=== PATIENT | female | born 1990 | race Caucasian/White ===

== ENCOUNTER 2024-01-16 15:05 | Outpatient (RCR) | payer BC, SELFPAY | END 2024-03-28 09:49 | disposition home or self-care (01) | PROVIDERS: PCP Physician Assistant Medical; Visit Provider Family Medicine | DX: M53.3 Sacrococcygeal disorders, not elsewhere classified (principal); M54.16 Radiculopathy, lumbar region; Z51.89 Encounter for other specified aftercare | CPT/HCPCS: 97110; 97161 ==

== ENCOUNTER 2024-01-25 11:14 | Outpatient (CLI) | payer BC, SELFPAY | END 2024-01-25 11:15 | disposition home or self-care (01) | LOC: LKVREF 11:16 | PROVIDERS: PCP Physician Assistant Medical; Visit Provider Nurse Practitioner Family | DX: N30.01 Acute cystitis with hematuria (principal); Z13.228 Encounter for screening for other metabolic disorders | CPT/HCPCS: 80053; 87086 ==

== ENCOUNTER 2024-04-19 16:08 | Outpatient (CLI) | payer BC, SELFPAY | END 2024-04-19 16:09 | disposition home or self-care (01) | PROVIDERS: PCP Physician Assistant Medical; Visit Provider Family Medicine | DX: R07.9 Chest pain, unspecified (principal) | CPT/HCPCS: 84443; 85379 ==

== ENCOUNTER 2024-04-24 07:56 | Outpatient (CLI) | payer BC, SELFPAY | END 2024-04-24 07:57 | disposition home or self-care (01) | LOC: RAD 07:57 | PROVIDERS: PCP Physician Assistant Medical; Visit Provider Family Medicine | DX: R07.9 Chest pain, unspecified (principal) | CPT/HCPCS: 93306 ==

== ENCOUNTER 2024-08-21 13:52 | Outpatient (CLI) | payer BC, SELFPAY ==
--- NOTE | 2024-08-21 14:00 | CRLHL7_ITS ---
For Patients: As a result of the Cures Act, medical imaging exams and procedure reports are released immediately into your electronic medical record. You may view this report before your referring provider. If you have questions, please contact your health care provider. LMP: 05/27/2024. MARTY by LMP: 03/03/2025. GA: 12w, 2d. INDICATION: Dating and viability. TECHNIQUE: Transabdominal obstetric imaging was performed. CRL: 2.2 cm, 8w, 6d. MARTY 03/27/2025. FHR: 178 bpm. GESTATIONAL SAC: 2.9 cm. YOLK SAC: 4.0 mm, appears within normal limits. RIGHT OVARY: Not visualized. LEFT OVARY: 3.3 x 1.8 x 1.9 cm, CL. IMPRESSION: Single living intrauterine with sonographic gestational age 8 weeks, 6 days and sonographic due date 03/27/2025. Leif Lombardo M.D. Diagnostic Radiologist [email or web address] ERIC/sunny / bM/Dictated by: Leif Lombardo MD @ 08/22/2024 8:16:00 PM (Electronically Signed)
== END 2024-08-21 13:53 | disposition home or self-care (01) ==
LOC: US 13:54
PROVIDERS: PCP Family Medicine; Visit Provider Registered Nurse
DX: Z34.91 Encounter for supervision of normal pregnancy, unspecified, first trimester (principal)
CPT/HCPCS: 76801; 82565; 82570; 83021; 84156; 84450; 84460; 84520; 86592; 86703; 86704; 86706; 86762; 86787; 86803; 86850; 86900; 86901; 87086; 87340; 87491; 87591

== ENCOUNTER 2024-08-26 08:13 | Outpatient (CLI) | payer BC, SELFPAY | END 2024-08-26 08:14 | disposition home or self-care (01) | LOC: NFLDREF 08-28 03:12 | PROVIDERS: PCP Family Medicine; Referring Provider Family Medicine; Visit Provider Registered Nurse | DX: R03.0 Elevated blood-pressure reading, without diagnosis of hypertension (principal) | CPT/HCPCS: 82570; 84156 ==

== ENCOUNTER 2024-09-04 15:30 | Outpatient (CLI) | payer BC, SELFPAY | END 2024-09-04 15:31 | disposition home or self-care (01) | LOC: NFLDREF 15:32 | PROVIDERS: PCP Family Medicine; Visit Provider Obstetrics & Gynecology | DX: R30.0 Dysuria (principal) | CPT/HCPCS: 87086 ==

== ENCOUNTER 2024-10-30 08:51 | Outpatient (CLI) | payer BC, SELFPAY ==
--- OUTSIDE RECORDS SUMMARY | 2024-10-31 00:34 | XMS_ITS | Clinical Summary ---
Author Organization [facility] Address [address] [place] [id number] Care Team Providers Care Agent Broker Name Role Phone Bertrand Escamilla PA-C Primary Care Provider [phone] Allergies Active Allergy Reactions Criticality Noted Date Comments No Known Allergies 10/02/2003 Medications desogestrel-eth inyl estradiol (APRI) 0.15-30 MG-MCG per tabletIndicatio ns:Contraceptio n Take 1 tablet by mouth daily. 3 Package 3 06/22/2011 Active gabapentin (NEURONTIN) 100 MG capsule Take 1 capsule (100 mg) by mouth 3 times daily for 14 days. 42 capsule 01/08/2024 Active Active Problems Problem Noted Date Diagnosed Date Tobacco abuse 05/23/2011 Papanicolaou smear of cervix with low grade squamous intraepithelial lesion (LGSIL) 05/23/2011 Overview (01/09/2013): 05/23/11 LSIL <21 years of age: repeat Dx pap in 1 year per pap protocol for age, due 05/201205/25/12 Reminder letter sent to patient 09/14/12 Phone conversation with patient regarding follow up needed. 11/21/12 Abnormal reminder sent. 01/09/13 Consider to be lost to pap follow up. CARDIOVASCULAR SCREENING; LDL GOAL LESS THAN 160 01/18/2011 GERD (gastroesophageal reflux disease) 8 Depressive disorder, not elsewhere classified Eating disorder 06/15/2003 Overview (02/05/2015): Problem list name updated by automated process. Provider to review Immunizations Immunization Administration Dates Next Due HPV 02/26/2010,09/11/2008 HepB 03/03/2005,11/20/2003,12/26/2002 Influenza (IIV3) PF 02/26/2010 MMR (MMRII) 12/26/2002 TD,PF 7+ (Tenivac) 12/26/2002 TDAP Vaccine (Adacel) 05/23/2011 Family History Medical History Relation Comments Cancer Maternal Grandfather protate CA Heart Disease Paternal Grandfather [place] Breast Cancer No family hx of Cancer - colorectal No family hx of Relation Status Comments Maternal Grandfather Paternal Grandfather Social History Tobacco Use Types Packs/Day Years Used Date Smoking Tobacco: Every Day Cigarettes Alcohol Use Standard Drinks/Week Comments Yes 0 (1 standard drink = 0.6 oz pur e alcohol) Comments No Sex and Gender Information Value Date Recorded Sex Assigned at Not on file Legal Sex Female 3:24 AM CIGAR BANDER Gender Identity Not on file Sexual Orientation Not on file Last Filed Vital Signs Vital Sign Reading Time Taken Comments Blood Pressure 134/100 01/08/2024 4:09 PM CDT Pulse 80 01/08/2024 4:09 PM CDT Temperature 36.5 C (97.7 F) 01/08/2024 3:02 PM CDT Respiratory Rate 18 01/08/2024 4:09 PM CDT Oxygen Saturation 95% 01/08/2024 4:09 PM CDT Inhaled Oxygen Concentration - - Weight 88.2 kg (194 lb 7.1 oz) 01/08/2024 3:02 P M CDT Height 170.2 cm (5' 7) 01/08/2024 3:02 PM CDT Body Mass Index 30.45 01/08/2024 3:02 PM CDT Plan of Treatment Health Maintenance Due Date Last Done Comments ADVANCE CARE PLANNING 1990 ANNUAL REVIEW OF HM ORDERS 1990 HEPATITIS C SCREENING 2008 PNEUMOCOCCAL VACCINE: PEDIATRICS (0 to 5 YEARS) AND AT-RISK PATIENTS (6 to 49 YEARS) (1 of 2 - PCV) 2009 PAP 05/23/2012 05/23/2011, 1006/2009, 09/11/2008, Additional history exists YEARLY PREVENTIVE VISIT 05/23/2012 05/23/19 12, 02/26/2010, 09/11/2008 LIPID 03/05/2015 03/05/2010 COVID-19 VACCINE ( season) 2024 PHQ-2 (once per calendar year) 2024 INFLUENZA VACCINE (Season Ended) 2025 02/26/2010 DTAP/TDAP/TD VACCINE (9 - Td or Tdap) 09/21/2031 09/20/2021, 03/31/2012, 05/23/2011, Additional history exists ZOSTER VACCINE (1 of 2) 2040 HIV SCREENING Completed 12/15/2003 HEPATITIS B VACCINE Completed 03/03/2005, 03/03/2005, 11/20/2003, Additional history exists HPV VACCINE Completed 08/27/2014, 02/06, 09/11/2008 MENINGITIS VACCINE Aged Out No longer eligible based on patient's age to complete this topic Procedures Procedure Name Priority Date/Time Associated Diagnosis Comments PAP IMAGED THIN LAYER SCREEN Routine 05/23/2011 9:05 AM CIGAR BANDER Routine general medical examination at a [facility] facility LIPID PROFILE Routine 03/05/2010 8:14 AM CDT Routine medical exam HCL HIV 1 & 2 ANTIBODY Routine 12/15/2003 1:26 PM CDT Screening For Veneral Dis from Last 3 Months or Most Recently Relevant to Health Maintenance Results * (ABNORMAL) PAP IMAGED THIN LAYER SCREEN (05/23/2011 9:05 AM CIGAR BANDER) PAP LSIL(A) CHARITO Leonard Report Patient Name: MARY RENO MR#: [id number] Specimen #: [id number] Collected: 05/23/2011 Received: 05/23/2011 Reported: 05/26/2011 09:39 Ordering Phy(s): KAYLIN ZHANG SPECIMEN/STAIN PROCESS: Pap imaged thin layer prep screening (Surepath, FocalPoint with guided screening) Pap-Cyto x 1, Reflex HPV x 1 SOURCE: Cervical, endocervical Pap imaged thin layer prep screening (Surepath, FocalPoint with guided screening) SPECIMEN ADEQUACY: Satisfactory for evaluation. -Transformation zone component present. CYTOLOGIC INTERPRETATION: Epithelial Cell Abnormality: Squamous Cell: Low-grade squamous intraepithelial lesion (LSIL) encompassing: HPV/ mild dysplasia/ MARAL 1. COMMENT: Case internally consulted. Electronically signed out by: Daniel Herron M.D. Processed and screened at [facility] CLINICAL HISTORY: LMP: 04-25-11 Previous normal pap Date of Last Pap: 02-26-10, Papanicolaou Test Limitations: Cervical cytology is a screening test with limited sensitivity; regular screening is critical for cancer prevention; Pap tests are primarily effective for the diagnosis/preventi on of squamous cell carcinoma, not adenocarcinomas or other cancers. TESTING LAB LOCATION: [address] [address] COLLECTION SITE: Client: [facility] Location: [facility] (R) [facility] Cytologic material (specimen) 05/23/2011 9:05 AM CIGAR BANDER 05/23/2011 1:24 PM CIGAR BANDER us Kaylin Zhang MD LAB - [facility] Final Result [facility] * (ABNORMAL) Lipid panel (03/05/2010 8:14 AM CDT) Cholesterol 220(H) 0 - 200 mg/dL [facility] Comment: LDL Cholesterol is the primary guide to therapy. The NCEP recommends further evaluation of: patients with cholesterol <200 mg/dL if additional risk factors are present, cholesterol >240 mg/dL, triglycerides >150 mg/dL, or HDL <40 mg/dL. Triglycerides 113 0 - 150 mg/dL [facility] HDL Cholesterol 69 50 - 110 mg/dL [facility] LDL Cholesterol Calculated 128 0 - 129 mg/dL [facility] Comment: LDL Cholesterol is the primary guide to therapy: LDL-cholesterol goal in high risk patients is <100 mg/dL and in very high risk patients is <70 mg/dL. VLDL-Cholesterol 23 0 - 30 mg/dL [facility] Cholesterol/HDL Ratio 3.2 0.0 - 5.0 [facility] Blood specimen (specimen) 03/05/2010 8:14 AM CDT 03/05/2010 8:19 AM CDT Makenzie Calvert MD LAB - BLOOD ORDERABLES Final Result [facility] [address] [place] [address] * HIV-1/HIV-2, SCREEN (12/15/2003 1:26 PM CDT) HIV 1&2 Antibody Negative NEG [facility] 12/15/2003 1:26 PM CDT 12/15/2003 1:35 PM CDT us Makenzie Calvert MD LABORATORY Final Result [facility] [address] [place] [address] from Last 3 Months or Most Recently Relevant to Health Maintenance Insurance [facility] Care Teams Agent Broker Relationship Specialty Start Date End Date Bertrand Escamilla PA-C [facility] [address] [place] [address] PCP - General 01/08/24
--- OUTSIDE RECORDS SUMMARY | 2024-10-31 00:34 | XMS_ITS | Patient Health Record ---
Author Organization [facility] Address [address] [place] [address] [address] [place] [address] Care Team Providers Care Manager Medical Device Name Role Phone Tyree Gibbs Primary Care Provider Kervin Altman Unavailable [phone] Travis Pruitt Unavailable [phone] Elizabeth Izquierdo Unavailable [phone] Allergies No Known Allergies Reason For Referral Reason REHAB PT and OT: MED X LUMBAR Diagnosis 1 Intervertebral disc disorders with radiculopathy, lumbar region (M51.16) Diagnosis 2 Low back pain, unspe cified (M54.50) Diagnosis 3 Segmental and somati c dysfunction of lumbar region (M99.03) Referral Organization [facility] Referring Provider First Name Tyree Referring Provider Last Name Sai Referring Provider Speciality Occupation al Medicine Referred Organization [facility] Referred Provider Reba Rivera Referred Address [address],[place], [place],[address], Referred Provider Specialty Rehabilitati on General Notes Megha Romero 04/15/20 24 11:37:53 AM >BCBS no PA req. OK to schedule, Ora Brenda 04/15/2024 12:44:18 PM >Therapy is already scheduled. Referral Priority Routine Social History Tobacco Use: Social History Observation Description Date Details (start date - stop date) Never Smoker NA - NA Tobacco Control (Standard) Question Answer Notes Tobacco use: Nonsmoker AUDIT-C (Standard) Question Answer Notes Did you have a drink containing alcohol in the p ast year? No Points 0 Interpretation Negative Problems Problem Type SNOMED Code ICD Code Onset Dates Problem Status W/U Status Risk Notes Problem Radiculopathy due to lumbar intervertebral disc disorder (854332669814962) Intervertebral disc disorders with radiculopathy, lumbar region (M51.16) Active confirmed Problem Somatic dysfunction of lumbar region (709592344) Segmental and somatic dysfunction of lumbar region (M99.03) Active confirmed Problem Low back pain (749973868) Low back pain, unspecified (M54.50) Active confirmed Vital Signs Blood pressure diastolic 80 mm Hg 04/11/2024 Height 67 in 04/11/2024 Blood pressure systolic 114 mm Hg 04/11/2024 Weight 195 lbs 04/11/2024 BMI 30.54 kg/m2 04/11/2024 Encounters Encounter Location Date Provider Diagnosis [facility] [address] [place] [address] [address] [place] [id number] 04/03/2024 Kervin Altman [facility] [address] [place] [address] 04/23/2024 Elizabeth [place] Intervertebral disc disorders with radiculopathy, lumbar region M51.16 ; Low back pain, unspecified M54.50 and Segmental and somatic dysfunction of lumbar region M99.03 [facility] [address] [place] [address] 05/09/2024 Travis Camilleon Low back pain, unspecified M54.50 and Segmental and somatic dysfunction of lumbar region M99.03 [facility] [address] [place] [address] 05/02/2024 Elizabeth Felecia Low back pain, unspecified M54.50 and Segmental and somatic dysfunction of lumbar region M99.03 [facility] [address] [place] [address] 05/16/2024 Elizabeth [place] Low back pain, unspecified M54.50 and Segmental and somatic dysfunction of lumbar region M99.03 [facility] [address] [place] [address] 05/21/2024 Elizabeth Felecia Low back pain, unspecified M54.50 and Segmental and somatic dysfunction of lumbar region M99.03 [facility] [address] [place] [address] 05/30/2024 Elizabeth [place] Low back pain, unspecified M54.50 and Segmental and somatic dysfunction of lumbar region M99.03 [facility] [address] [facility] [place] [address] 06/04/2024 Elizabeth Izquierdo Low back pain, unspecified M54.50 and Segmental and somatic dysfunction of lumbar region M99.03 [facility] [address] [facility] [place] [address] 06/06/2024 Elizabeth Izquierdo Low back pain, unspecified M54.50 and Segmental and somatic dysfunction of lumbar region M99.03 [facility] [address] [place] [address] 04/11/2024 Tyree Gibbs Intervertebral disc disorders with radiculopathy, lumbar region M51.16 ; Low back pain, unspecified M54.50 and Segmental and somatic dysfunction of lumbar region M99.03 Assessments Encounter Date Diagnosis (ICD Code) Assessment Notes Treatment Notes Treatment Clinical Notes Section Notes 06/06/2024 Low back pain, unspecified (ICD-10 - M54.50) 06/04/2024 Low back pain, unspecified (ICD-10 - M54.50) 05/30/2024 Low back pain, unspecified (ICD-10 - M54.50) 05/21/2024 Low back pain, unspecified (ICD-10 - M54.50) 05/16/2024 Low back pain, unspecified (ICD-10 - M54.50) 05/09/2024 Low back pain, unspecified (ICD-10 - M54.50) 05/02/2024 Low back pain, unspecified (ICD-10 - M54.50) 04/23/2024 Intervertebral disc disorders with radiculopathy, lumbar region (ICD-10 - M51.16) 04/11/2024 Intervertebral disc disorders with radiculopathy, lumbar region (ICD-10 - M51.16) 1. I believe Mary is an excellent candidate for the type of treatment available here at [facility]. I believe she will benefit from core and deep core muscle strength building to support the spine. We will utilize our MedX equipment to isolate on critical muscle groups to achieve, first, muscle re-education, recruitment and activation, and then strength. Range of motion and strength will be measured objectively, and the patient will work towards resistance goals calculated for them by the therapists. 2. The patient has resolving left-sided S1 nerve root radiculopathy related to a 7 mm left posterior lateral extruded disc herniation with impingement upon the traversing S1 nerve root. The patient did undergo a microdiscectomy procedure with Corby Estrada [facility] on January 29, 2024. Left leg radicular symptoms have improved. However, the patient continues to have some weakness in the left-sided calf muscle. However, this is improving. Prior to the onset of the radiculopathy the patient had a prodrome of low back pain for 6 months. 3. Given this history the patient will want to maintain deep core strength to support the lumbar spine throughout her adult life. She does have moderate to severe degenerative disc disease at the L5-S1 level, and a disc herniation could easily recur. There is also a small disc protrusion at the L4-5 level without central stenosis or neural impingement. 4. Both physical therapists and occupational therapists will have input into developing the patient's plan of care. This will be an active biopsychosocial care approach. In some cases, we will utilize a cognitive-behavio ral coaching emphasis. 5. In addition to strength building during appointment times, the patient will be provided a home exercise progression tailored to their needs. The goal will be to further improve functional mobility, strength, endurance and in some cases balance. The need for an aftercare exercise program will be addressed to help the patient maintain benefits gained during their course of treatment. 6. Today's evaluation occupied a full 35 minutes altogether including time spent preparing to see the patient in that providing this documentation. Prior to seeing the patient I did review outside medical records. Other program topics and elements may include: 1. Instruction in body mechanics, ergonomics, and functional training. 2. Pain neuroscience. 3. Sleep and diet. 4. Non-pharmacologic pain management. 5. Manual therapy techniques including self-care. 6. Meditation techniques such as conscious napping. 04/11/2024 Low back pain, unspecified (ICD-10 - M54.50) 1. I believe Mary is an excellent candidate for the type of treatment available here at [facility]. I believe she will benefit from core and deep core muscle strength building to support the spine. We will utilize our MedX equipment to isolate on critical muscle groups to achieve, first, muscle re-education, recruitment and activation, and then strength. Range of motion and strength will be measured objectively, and the patient will work towards resistance goals calculated for them by the therapists. 2. The patient has resolving left-sided S1 nerve root radiculopathy related to a 7 mm left posterior lateral extruded disc herniation with impingement upon the traversing S1 nerve root. The patient did undergo a microdiscectomy procedure with Corby Estrada [facility] on January 29, 2024. Left leg radicular symptoms have improved. However, the patient continues to have some weakness in the left-sided calf muscle. However, this is improving. Prior to the onset of the radiculopathy the patient had a prodrome of low back pain for 6 months. 3. Given this history the patient will want to maintain deep core strength to support the lumbar spine throughout her adult life. She does have moderate to severe degenerative disc disease at the L5-S1 level, and a disc herniation could easily recur. There is also a small disc protrusion at the L4-5 level without central stenosis or neural impingement. 4. Both physical therapists and occupational therapists will have input into developing the patient's plan of care. This will be an active biopsychosocial care approach. In some cases, we will utilize a cognitive-behavio ral coaching emphasis. 5. In addition to strength building during appointment times, the patient will be provided a home exercise progression tailored to their needs. The goal will be to further improve functional mobility, strength, endurance and in some cases balance. The need for an aftercare exercise program will be addressed to help the patient maintain benefits gained during their course of treatment. 6. Today's evaluation occupied a full 35 minutes altogether including time spent preparing to see the patient in that providing this documentation. Prior to seeing the patient I did review outside medical records. Other program topics and elements may include: 1. Instruction in body mechanics, ergonomics, and functional training. 2. Pain neuroscience. 3. Sleep and diet. 4. Non-pharmacologic pain management. 5. Manual therapy techniques including self-care. 6. Meditation techniques such as conscious napping. 04/11/2024 Segmental and somatic dysfunction of lumbar region (ICD-10 - M99.03) 1. I believe Mary is an excellent candidate for the type of treatment available here at [facility]. I believe she will benefit from core and deep core muscle strength building to support the spine. We will utilize our MedX equipment to isolate on critical muscle groups to achieve, first, muscle re-education, recruitment and activation, and then strength. Range of motion and strength will be measured objectively, and the patient will work towards resistance goals calculated for them by the therapists. 2. The patient has resolving left-sided S1 nerve root radiculopathy related to a 7 mm left posterior lateral extruded disc herniation with impingement upon the traversing S1 nerve root. The patient did undergo a microdiscectomy procedure with Corby Estrada [facility] on January 29, 2024. Left leg radicular symptoms have improved. However, the patient continues to have some weakness in the left-sided calf muscle. However, this is improving. Prior to the onset of the radiculopathy the patient had a prodrome of low back pain for 6 months. 3. Given this history the patient will want to maintain deep core strength to support the lumbar spine throughout her adult life. She does have moderate to severe degenerative disc disease at the L5-S1 level, and a disc herniation could easily recur. There is also a small disc protrusion at the L4-5 level without central stenosis or neural impingement. 4. Both physical therapists and occupational therapists will have input into developing the patient's plan of care. This will be an active biopsychosocial care approach. In some cases, we will utilize a cognitive-behavio ral coaching emphasis. 5. In addition to strength building during appointment times, the patient will be provided a home exercise progression tailored to their needs. The goal will be to further improve functional mobility, strength, endurance and in some cases balance. The need for an aftercare exercise program will be addressed to help the patient maintain benefits gained during their course of treatment. 6. Today's evaluation occupied a full 35 minutes altogether including time spent preparing to see the patient in that providing this documentation. Prior to seeing the patient I did review outside medical records. Other program topics and elements may include: 1. Instruction in body mechanics, ergonomics, and functional training. 2. Pain neuroscience. 3. Sleep and diet. 4. Non-pharmacologic pain management. 5. Manual therapy techniques including self-care. 6. Meditation techniques such as conscious napping. 06/06/2024 Segmental and somatic dysfunction of lumbar region (ICD-10 - M99.03) 04/23/2024 Low back pain, unspecified (ICD-10 - M54.50) 05/02/2024 Segmental and somatic dysfunction of lumbar region (ICD-10 - M99.03) 05/09/2024 Segmental and somatic dysfunction of lumbar region (ICD-10 - M99.03) 05/16/2024 Segmental and somatic dysfunction of lumbar region (ICD-10 - M99.03) 05/21/2024 Segmental and somatic dysfunction of lumbar region (ICD-10 - M99.03) 05/30/2024 Segmental and somatic dysfunction of lumbar region (ICD-10 - M99.03) 06/04/2024 Segmental and somatic dysfunction of lumbar region (ICD-10 - M99.03) 04/23/2024 Segmental and somatic dysfunction of lumbar region (ICD-10 - M99.03) 04/11/2024 Other I, Lavern Messer, am serving as a scribe to document services personally performed by Tyree Gibbs MD, based upon my observations and the provider's statements to me. All documentation has been reviewed by the aforementioned doctor prior to being entered into the official medical record. I, Tyree Gibbs MD attest that the above named individual is acting in scribe capacity, has observed my performance of the services and has documented them in accordance with my direction. The documentation recorded by the scribe accurately reflects the service I personally performed and the decisions made by me. 1. I believe Mary is an excellent candidate for the type of treatment available here at [facility]. I believe she will benefit from core and deep core muscle strength building to support the spine. We will utilize our MedX equipment to isolate on critical muscle groups to achieve, first, muscle re-education, recruitment and activation, and then strength. Range of motion and strength will be measured objectively, and the patient will work towards resistance goals calculated for them by the therapists. 2. The patient has resolving left-sided S1 nerve root radiculopathy related to a 7 mm left posterior lateral extruded disc herniation with impingement upon the traversing S1 nerve root. The patient did undergo a microdiscectomy procedure with Corby Estrada [facility] on January 29, 2024. Left leg radicular symptoms have improved. However, the patient continues to have some weakness in the left-sided calf muscle. However, this is improving. Prior to the onset of the radiculopathy the patient had a prodrome of low back pain for 6 months. 3. Given this history the patient will want to maintain deep core strength to support the lumbar spine throughout her adult life. She does have moderate to severe degenerative disc disease at the L5-S1 level, and a disc herniation could easily recur. There is also a small disc protrusion at the L4-5 level without central stenosis or neural impingement. 4. Both physical therapists and occupational therapists will have input into developing the patient's plan of care. This will be an active biopsychosocial care approach. In some cases, we will utilize a cognitive-behavio ral coaching emphasis. 5. In addition to strength building during appointment times, the patient will be provided a home exercise progression tailored to their needs. The goal will be to further improve functional mobility, strength, endurance and in some cases balance. The need for an aftercare exercise program will be addressed to help the patient maintain benefits gained during their course of treatment. 6. Today's evaluation occupied a full 35 minutes altogether including time spent preparing to see the patient in that providing this documentation. Prior to seeing the patient I did review outside medical records. Other program topics and elements may include: 1. Instruction in body mechanics, ergonomics, and functional training. 2. Pain neuroscience. 3. Sleep and diet. 4. Non-pharmacologic pain management. 5. Manual therapy techniques including self-care. 6. Meditation techniques such as conscious napping. Plan Of Treatment No Information Insurance Providers Payer Name Payer Address Payer Phone Subscriber Number Group Number Insured Name Patient Relationship to Insured Coverage Start Date Coverage End Date [facility] [address] [address] [place] [address] [id number] [id number] Mary Bray Self - patient is the insured Medical (General) History Surgical History Surgery Date(Month/Year) Microdiscectomy 01/29/24 Hospitalization History Reason Date(Month/Year) Surgical
== END 2024-10-30 08:52 | disposition home or self-care (01) ==
LOC: US 08:51
PROVIDERS: PCP Family Medicine; Visit Provider Obstetrics & Gynecology
DX: O10.912 Unspecified pre-existing hypertension complicating pregnancy, second trimester (principal); Z3A.18 18 weeks gestation of pregnancy
CPT/HCPCS: 76811

== ENCOUNTER 2024-11-20 14:38 | Outpatient (CLI) | payer BC, SELFPAY | END 2024-11-20 14:39 | disposition home or self-care (01) | PROVIDERS: PCP Family Medicine; Visit Provider Advanced Practice Midwife | DX: O10.912 Unspecified pre-existing hypertension complicating pregnancy, second trimester (principal); Z3A.21 21 weeks gestation of pregnancy | CPT/HCPCS: 76816 ==

== ENCOUNTER 2025-01-02 08:46 | Outpatient (CLI) | payer BC, SELFPAY | END 2025-01-02 08:47 | disposition home or self-care (01) | LOC: NFLDREF 01-05 16:59 | PROVIDERS: PCP Family Medicine; Referring Provider Family Medicine; Visit Provider Advanced Practice Midwife | DX: Z34.83 Encounter for supervision of other normal pregnancy, third trimester (principal) | CPT/HCPCS: 86592 ==

== ENCOUNTER 2025-01-02 08:48 | Outpatient (CLI) | payer BC, SELFPAY ==
--- NOTE | 2025-01-02 09:15 | CRLHL7_ITS ---
For Patients: As a result of the Century Cures Act, medical imaging exams and procedure reports are released immediately into your electronic medical record. You may view this report before your referring provider. If you have questions, please contact your health care provider. OB ULTRASOUND 01/02/2025 CLINICAL HISTORY: Pre-existing HTN. COMPARISON: 11/20/2024, 10/30/2024. TECHNIQUE: Real time rodriguez scale imaging of the fetus was performed. Transabdominal imaging performed. FINDINGS: MARTY by US: 03/27/2025. GA: 28 weeks 0 days. Gestation: Single. Cervix: Not visualized. Positioning: Technique: TA. Placenta Position: Anterior. Dopplers Heart Rate: 145 bpm. BIOMETRY BPD: 6.9 cm, 27 weeks 6 days. 34% HC: 26.4 cm, 28 weeks 5 days. 40% AC: 25.0 cm, 29 weeks 1 day. 77% FL: 5.3 cm, 28 weeks 2 days. 42% FL/AC Ratio: 21.32% HC/AC Ratio: 1.06. EFW: 1274 grams, 2 lb 13 oz. Age by this US: 28 weeks 4 days. MARTY by this US: 03/23/2025. Percentile by MARTY: 66% IMPRESSION: 1. Sonographic gestational age 28 weeks 4 days and sonographic due date 03/23/2025. Good correlation with dates. Normal interval growth. 2. Estimated weight 66th percentile. Abdominal circumference 77th percentile. Leif Lombardo M.D. Diagnostic Radiologist [email or web address] Transcribed: 11:19 am DW/Dictated by: Leif Lombardo MD @ 01/02/2025 10:53:00 AM (Electronically Signed)
== END 2025-01-02 08:49 | disposition home or self-care (01) ==
LOC: US 08:48
PROVIDERS: PCP Family Medicine; Visit Provider Advanced Practice Midwife
DX: O10.913 Unspecified pre-existing hypertension complicating pregnancy, third trimester (principal); Z3A.28 28 weeks gestation of pregnancy
CPT/HCPCS: 76816

== ENCOUNTER 2025-01-30 08:12 | Outpatient (CLI) | payer BC, SELFPAY ==
--- NOTE | 2025-01-30 08:15 | CRLHL7_ITS ---
For Patients: As a result of the Century Cures Act, medical imaging exams and procedure reports are released immediately into your electronic medical record. You may view this report before your referring provider. If you have questions, please contact your health care provider. OB ULTRASOUND MARTY by US: 03/27/2025. GA: 32 w, 0 d. Single. Comparison: 01/02/2025, 11/20/2024, 10/30/2024. INDICATION: HTN, growth. TECHNIQUE: Real time rodriguez scale imaging of the fetus was performed. Transabdominal imaging performed. CERVIX: Not visualized. POSITIONING: Vertex. AMNIOTIC FLUID: 4.7 cm SDP (N: greater than 2 x 1 cm) PLACENTA: Technique: Transabdominal. PLACENTA POSITION: Anterior. DOPPLER: heart rate: 145 bpm. BIOMETRY: BPD: 8.1 cm. 32 w, 3 d, 56.4%. HC: 29.9 cm. 33 w, 1 d, 40.9%. AC: 29.6 cm. 33 w, 4 d, 88.1%. FL: 6.4 cm. 33 w, 1 d, 70.1%. FL/AC ratio: 21.7 percent. HC/AC ratio: 1.0. EFW: 2165g. Weight: 4 lbs., 12 oz. age by this US: 33 w, 1 d. MARTY by this US: 03/19/2025. Percentile by MARTY: 80.4%. IMPRESSION: 1. Sonographic gestational age 33 weeks 1 day and sonographic due date 03/19/2025. Sonographic age is 8 days ahead of the clinical age. 2. Estimated weight 80th percentile. Abdominal circumference 88th percentile. Leif Lombardo M.D. Diagnostic Radiologist [email or web address]/[email or web address] by: Leif Lombardo MD @ 01/30/2025 1:02:00 PM (Electronically Signed)
== END 2025-01-30 08:13 | disposition home or self-care (01) ==
LOC: US 08:12
PROVIDERS: PCP Family Medicine; Visit Provider Advanced Practice Midwife
DX: O10.913 Unspecified pre-existing hypertension complicating pregnancy, third trimester (principal); O36.63X0 Maternal care for excessive fetal growth, third trimester, not applicable or unspecified; Z3A.32 32 weeks gestation of pregnancy
CPT/HCPCS: 76816

== ENCOUNTER 2025-02-27 08:12 | Outpatient (CLI) | payer BC, SELFPAY ==
--- NOTE | 2025-02-27 08:15 | CRLHL7_ITS ---
For Patients: As a result of the Century Cures Act, medical imaging exams and procedure reports are released immediately into your electronic medical record. You may view this report before your referring provider. If you have questions, please contact your health care provider. OB ULTRASOUND FOLLOW-UP BODY, TRANSABDOMINAL MARTY by US: 03/27/2025. GA: 36 w, 0 d. Single. Comparison: Ultrasound 11/20/2024, 01/02/2025, 01/30/2025. INDICATION: Pre-existing hypertension complication. TECHNIQUE: Real time rodriguez scale imaging of the fetus was performed. Transabdominal imaging performed. CERVIX: Not visualized. POSITIONING: Vertex. AMNIOTIC FLUID: 7.0 cm SDP (N: greater than 2 x 1 cm) PLACENTA: Technique: Transabdominal. PLACENTA POSITION: Anterior, right wall. DOPPLER: heart rate: 147 bpm. BIOMETRY: BPD: 8.7 cm. 35 w, 2 d, 37.7 percent. HC: 32.5 cm. 36 w, 6 d, 38.5 percent. AC: 34.8 cm. 38 w, 5 d, 97 percent. FL: 7.2 cm. 36 w, 6 d, 69.7 percent. FL/AC ratio: 20.7 percent. HC/AC ratio: 0.9. EFW: 3265 g. Weight: 7 lbs, 3 oz. age by this US: 37 w, 0 d. MARTY by this US: 03/20/2025. Percentile by MARTY: 89.7 percent. IMPRESSION: 1. Sonographic gestational age 37 weeks 0 days and sonographic due date 03/20/2025. Sonographic age is 1 week ahead of the clinical age. 2. Estimated weight 90th percentile. Abdominal circumference greater than 97th percentile. Leif Lombardo M.D. Diagnostic Radiologist [email or web address] SP/Dictated by: Leif Lombardo MD @ 02/27/2025 9:16:00 AM (Electronically Signed)
== END 2025-02-27 08:13 | disposition home or self-care (01) ==
LOC: US 08:12
PROVIDERS: PCP Family Medicine; Visit Provider Advanced Practice Midwife
DX: O10.913 Unspecified pre-existing hypertension complicating pregnancy, third trimester (principal); O36.63X0 Maternal care for excessive fetal growth, third trimester, not applicable or unspecified; Z3A.36 36 weeks gestation of pregnancy
CPT/HCPCS: 76816

== ENCOUNTER 2025-02-27 09:32 | Outpatient (CLI) | payer BC, SELFPAY ==
[2025-02-28 12:55] LABS: Strep B DNA Probe Negative (Negative)
[2025-02-28 13:00] LABS: Strep B Susceptibility Needed? No
== END 2025-02-27 09:33 | disposition home or self-care (01) ==
LOC: NFLDREF 09:33
PROVIDERS: PCP Family Medicine; Visit Provider Midwife
DX: Z34.93 Encounter for supervision of normal pregnancy, unspecified, third trimester (principal)
CPT/HCPCS: 87081; 87653

== ENCOUNTER 2025-03-12 08:30 | Outpatient (RCR) | payer BC, SELFPAY | END 2025-04-07 11:36 | disposition home or self-care (01) | PROVIDERS: PCP Family Medicine; Visit Provider Obstetrics & Gynecology | DX: M54.31 Sciatica, right side (principal); Z3A.30 30 weeks gestation of pregnancy; Z51.89 Encounter for other specified aftercare | CPT/HCPCS: 97110; 97112; 97161 ==

== ENCOUNTER 2025-03-23 09:05 | Inpatient (IN) | payer BC, SELFPAY ==
[2025-03-23] VITALS (33 sets, daily range): BP systolic 111–182; BP diastolic 64–105; PULSE 74–104; RESP 16; TEMP 36.6–36.8; O2SAT 95–99; BMI 35.1
[2025-03-23] MEDS: CARBOPROST TROMETHAMINE 250 MCG/ML INJ IM (10:41)
[2025-03-23] MEDS: LOPERAMIDE HCL 2 MG CAPSULE 4 MG PO (10:45)
[2025-03-23] MEDS: OXYTOCIN 30 unit/500 ML in NS 30 UNIT/500 ML BAG 300 UNIT IVPB (10:45)
[2025-03-23] MEDS: IBUPROFEN 600 MG TABLET PO (11:00)
[2025-03-23 11:08] LABS: Hematocrit* 39.6 % (33.0-51.0); Hemoglobin* 13.5 gm/dL (12.0-16.0); Mean Corpuscular HGB Conc 34 gm/dL (32-36); Mean Corpuscular Hemoglobin 30 pg (26-34); Mean Corpuscular Volume 88 fL (80-100); Red Blood Count* 4.50 m/uL (4.00-5.20); White Blood Count* 17.12 K/uL (4.50-11.00)
[2025-03-23 11:14] LABS: Slide Review Reflex No
[2025-03-23] MEDS: ONDANSETRON 2 MG/ML inj 4 MG IV (11:16)
[2025-03-23 11:24] LABS: Alanine Aminotransferase* 22 U/L (4-35); Aspartate Amino Transferase* 21 U/L (12-35); Blood Urea Nitrogen* 9 mg/dL (5-24); Creatinine* 0.6 mg/dL (0.5-1.5); Estimated Glomerular Filt Rate 121 ml/min
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
--- NOTE | 2025-03-23 11:50 | W.PM.OBVAGDE ---
OB Procedure Vag Delivery Mother Details Mother Details: The patient is a 34 year-old, 3, Para 2, admitted on 03/23/25 at Days gestation. Admission Date: 03/23/25 Additional Details Amniotic Membrane Status: SROM Amniotic Membrane Rupture Date: 03/23/25 Amniotic Membrane Rupture Time: 10:05 Amniotic Membrane Fluid Description: Clear Analgesia/Anesthesia Type: None Waterbirth: Yes Pitcoin: Yes (PP only when bleeding indicated it was necessary) Intrapartal Events: None Labor Onset: 04:00 Complete: 09:46 (assumed with spontaneous pushing) Pushin:46 Heart: heart tones during second stage were cat I. No audible decels, checked intermittently Delivery Details Delivery Date: 03/23/25 Delivery Time: 10:16 Route of delivery: Gender: Male Infant Viability: Alive; Heart Rate Present Position at Delivery: OA Delivery Details: Patient was admitted for active labor and progressed normally. SROM noted at 1005 with clear fluid. Patient was assumed complete at 0946 with intermittent spontaneous pushing at 0946.. of a viable male at 1016 in sitting in the tub. Vertex delivered OA. Nuchal cord slipped over the head. Body delivered easily and without incident when mom had the urge to push again. There was no shoulder dystocia, but mom paused before pushing again. passed to mothers abdomen with a vigorous cry after brief stimulation. Bulb suction was utilized by nurse. Cord was clamped and cut at > 5 minutes. APGARS were 9 at one minute and 9 at five minutes respectively. Intact placenta with a 3 vessel cord delivered spontaneously at 1028. Fundus firm intially. Perineum, vulva and vagina inspected and no lacerations found. Another fundal check was firm but noted superior migration of the uterus. Vaginal and lower uterine sweep done with consent. Large clot palpable. Pt consented pitocin IM. With next vaginal sweep another large clot teased out. IV requested, Pit IV and hemabate given. Fundal pressure continuously applied to maintain hemostasis until meds given time to work. One more sweep with moderate amount of clots noted, but minimal to no bleeding since. Will hold on TXA at this point since total QBL is 585 cc. VS have remained stable outside of some intermittent severe range pressures, not sustained. One is due to incorrect arm placement per nursing. Stat labs including a type and screen were drawn and are normal. Mary is struggling with nausea, vomiting and cramping pain. She vomited up her ibuprofen. She did consent to zofran IV but has minimal relief of the nausea since then. Mother and baby stable; mother plans to breastfeed. weight 7#14oz. Dr Mendoza is aware of patient situation to be considerate but is not yet taking responsibility for her care. Plan is to initiate Nifedipine xr this doretha if still moderate and mild range BPs. If severe range, will have Dr Mendoza come evaluate the patient, initiate magnesium and short acting labetolol as indicated. 1 Minute Interval Total Score: 9 5 Minute Interval Total Score: 9 Additional Details Shoulder Dystocia: No Placenta Delivery Time: 10:28 Placental Delivery Description: Spontaneous Delivery repair: Vicryl Procedure Done: Global Blood Loss: 585 Laceration: None Blood Loss Measurement Type: QBL Bakri Used: No Sponge/Need Count Correct: Yes Cord Vessel Description: 3 Vessels, Nuchal Cord and Reduced (without complication) Event Summary Status: Mother and infant were stable after delivery. Disposition: floor
[2025-03-23] MEDS: ACETAMINOPHEN 500 MG TABLET 1000 MG PO (16:08)
[2025-03-24 00:10] VITALS: BP 112/74; PULSE 95; RESP 18; TEMP 36.4; O2SAT 96
[2025-03-24 04:40] VITALS: BP 112/66; PULSE 56; RESP 16; TEMP 36.6; O2SAT 98
[2025-03-24] MEDS: ACETAMINOPHEN 500 MG TABLET 1000 MG PO (04:45)
[2025-03-24 06:29] LABS: Hemoglobin* 12.0 gm/dL (12.0-16.0)
--- NOTE | 2025-03-24 07:55 | P.DS_ITS ---
DS: Providers Provider Date Seen: 03/24/25 Date of admission: 03/23/25 09:05 Primary care physician: Arely Lundberg MD Admitting Clinician: Melly Combs CNM Attending Physician on discharge: Nichole Hung APRN, CNM DS: Diagnosis Discharge Diagnosis (1) care and examination immediately after delivery: Status: Acute (2) Chronic hypertension: Status: Acute Problem details: Exacerbation immediately after delivery, non sustained SRPBP. Normal labs. (3) Lactating mother: Status: Acute Exam Narrative: Exam Narrative: GENERAL APPEARANCE:? normal affect, alert, no distress MOOD:? appropriate CHEST:? clear to auscultation HEART:? regular rate and rhythm ABDOMEN:? soft, non-tender the uterine fundus is At Umbilicus, Midline and is appropriate for the stage of recovery. PERINEUM:? mild edema of the perineum. EXTREMITIES:? normal and no edema Const: Vital Signs, click to edit/add: Vital Signs - 24 hr 03/23/25 08:48 03/23/25 08:52 03/23/25 09:03 Temperature Pulse Rate 83 102 H Pulse Rate [Pulse Oximeter] Respiratory Rate Blood Pressure 140/83 H 142/86 H Blood Pressure [Le ft Arm] Blood Pressure [Ri ght Arm] Pulse Oximetry 99 Oxygen Delivery Me thod 03/23/25 10:34 03/23/25 10:34 03/23/25 10:50 Temperature Pulse Rate 101 H Pulse Rate [Pulse Oximeter] Respiratory Rate Blood Pressure 141/83 H 142/79 H Blood Pressure [Le ft Arm] Blood Pressure [Ri ght Arm] Pulse Oximetry Oxygen Delivery Me thod 03/23/25 10:50 03/23/25 10:52 03/23/25 10:52 Temperature Pulse Rate 86 100 Pulse Rate [Pulse Oximeter] Respiratory Rate Blood Pressure 156/89 H Blood Pressure [Le ft Arm] Blood Pressure [Ri ght Arm] Pulse Oximetry Oxygen Delivery Me thod 03/23/25 10:57 03/23/25 10:57 03/23/25 11:02 Temperature Pulse Rate 90 Pulse Rate [Pulse Oximeter] Respiratory Rate Blood Pressure 158/91 H 167/94 H Blood Pressure [Le ft Arm] Blood Pressure [Ri ght Arm] Pulse Oximetry Oxygen Delivery Me thod 03/23/25 11:02 03/23/25 11:07 03/23/25 11:07 Temperature Pulse Rate 82 90 Pulse Rate [Pulse Oximeter] Respiratory Rate Blood Pressure 148/86 H Blood Pressure [Le ft Arm] Blood Pressure [Ri ght Arm] Pulse Oximetry Oxygen Delivery Me thod 03/23/25 11:12 03/23/25 11:12 03/23/25 11:17 Temperature Pulse Rate 93 Pulse Rate [Pulse Oximeter] Respiratory Rate Blood Pressure 133/73 143/81 H Blood Pressure [Le ft Arm] Blood Pressure [Ri ght Arm] Pulse Oximetry Oxygen Delivery Me thod 03/23/25 11:17 03/23/25 11:34 03/23/25 11:34 Temperature Pulse Rate 85 86 Pulse Rate [Pulse Oximeter] Respiratory Rate Blood Pressure 166/87 H Blood Pressure [Le ft Arm] Blood Pressure [Ri ght Arm] Pulse Oximetry Oxygen Delivery Me thod 03/23/25 11:38 03/23/25 11:38 03/23/25 11:49 Temperature Pulse Rate 88 Pulse Rate [Pulse Oximeter] Respiratory Rate Blood Pressure 154/85 H 153/85 H Blood Pressure [Le ft Arm] Blood Pressure [Ri ght Arm] Pulse Oximetry Oxygen Delivery Me thod 03/23/25 11:49 03/23/25 12:04 03/23/25 12:04 Temperature Pulse Rate 78 74 Pulse Rate [Pulse Oximeter] Respiratory Rate Blood Pressure 147/92 H Blood Pressure [Le ft Arm] Blood Pressure [Ri ght Arm] Pulse Oximetry Oxygen Delivery Me thod 03/23/25 12:19 03/23/25 12:19 03/23/25 12:29 Temperature Pulse Rate 81 Pulse Rate [Pulse Oximeter] Respiratory Rate Blood Pressure 155/94 H 149/90 H Blood Pressure [Le ft Arm] Blood Pressure [Ri ght Arm] Pulse Oximetry Oxygen Delivery Me thod 03/23/25 12:29 03/23/25 12:40 03/23/25 12:40 Temperature Pulse Rate 77 88 Pulse Rate [Pulse Oximeter] Respiratory Rate Blood Pressure 182/105 H Blood Pressure [Le ft Arm] Blood Pressure [Ri ght Arm] Pulse Oximetry Oxygen Delivery Me thod 03/23/25 12:42 03/23/25 12:42 03/23/25 12:59 Temperature Pulse Rate 81 Pulse Rate [Pulse Oximeter] Respiratory Rate Blood Pressure 163/100 H 158/93 H Blood Pressure [Le ft Arm] Blood Pressure [Ri ght Arm] Pulse Oximetry Oxygen Delivery Me thod 03/23/25 12:59 03/23/25 13:34 03/23/25 13:44 Temperature Pulse Rate 83 Pulse Rate [Pulse Oximeter] Respiratory Rate Blood Pressure Blood Pressure [Le ft Arm] 138/90 H 144/95 H Blood Pressure [Ri ght Arm] Pulse Oximetry Oxygen Delivery Me thod 03/23/25 13:54 03/23/25 14:04 03/23/25 14:20 Temperature Pulse Rate Pulse Rate [Pulse Oximeter] Respiratory Rate Blood Pressure Blood Pressure [Le ft Arm] 124/81 129/83 124/81 Blood Pressure [Ri ght Arm] Pulse Oximetry Oxygen Delivery Me thod 03/23/25 14:35 03/23/25 14:50 03/23/25 15:05 Temperature Pulse Rate Pulse Rate [Pulse Oximeter] Respiratory Rate Blood Pressure Blood Pressure [Le ft Arm] 127/77 127/77 117/70 Blood Pressure [Ri ght Arm] Pulse Oximetry Oxygen Delivery Me thod 03/23/25 15:25 03/23/25 15:40 03/23/25 15:55 Temperature 97.9 F Pulse Rate Pulse Rate [Pulse Oximeter] 91 Respiratory Rate 16 Blood Pressure Blood Pressure [Le ft Arm] 132/78 122/82 131/72 Blood Pressure [Ri ght Arm] Pulse Oximetry 97 Oxygen Delivery Me thod Room Air 03/23/25 17:00 03/23/25 20:00 03/24/25 00:10 Temperature 98.3 F 97.6 F Pulse Rate Pulse Rate [Pulse Oximeter] 104 H 102 H 95 Respiratory Rate 16 18 Blood Pressure Blood Pressure [Le ft Arm] 112/74 Blood Pressure [Ri ght Arm] 111/64 112/74 Pulse Oximetry 95 96 Oxygen Delivery Me thod Room Air Room Air 03/24/25 04:40 Temperature 97.8 F Pulse Rate Pulse Rate [Pulse Oximeter] 56 L Respiratory Rate 16 Blood Pressure Blood Pressure [Le ft Arm] 112/66 Blood Pressure [Ri ght Arm] Pulse Oximetry 98 Oxygen Delivery Me thod Room Air OB - DS: Summary Hospital Course Hospital Course: Mary is a 34 y.o. G 3 P 3 who was admitted to L & D for spontaneous onset of labor. ?She had a NVD that was uncomplicated. The patient feels well. ?The pain is well controlled with current medications. ?She has no new complaints. ?She is breast feeding and reports things are going well. the patient has done well.? Vitals have been stable.?She had a few elevated BP's after delivery but have subsequently been normotensive. She has remained afebrile.? Has a good appetite, is tolerating a general diet. ?She is voiding without difficulty.? She is passing gas and has not had a bowel movement.? She is ambulating and denies any dizziness.? Has small amount of rubra lochia. Problems: none Discharge home with baby.? Follow up in 2 weeks and 6 weeks.? , may see if needed? Hgb 12.0? Chronic HTN? Labs WNL Call for signs/symptoms of preeclampsia? For pain control of perineum, breast and pelvic pain, take 600 mg Ibuprofen every 6 hours as needed by mouth or 1000 mg acetaminophen (Tylenol) every 6 hours by mouth as needed. You can alternate these so you are taking something every 3 hours as needed. A heating pad can also be used for your abdomen or breasts. You may also take docusate sodium up to twice daily to soften your stools and help to prevent constipation. You may wean off of it when your stools return to normal.? Peripartum Data delivery method: Vaginal Laceration description: None complications: none Infant Gender: Male Infant Discharge Plan: Home Status at Discharge Functional status at discharge: independent ambulation Overall status at discharge: patient is progressing back to baseline Time Spent with Patient Time attestation: Total time spent providing and/or coordinating discharge services: Time spent: Less than 30 minutes Discharge Plan Discharge Disposition: Home, Self-Care Date of Admission: 03/23/25 09:05 Attending Provider on Discharge: Nichole Hung Primary Care Provider: Arely Lundberg Condition: Stable Anticipated Discharge Date/Time: 03/24/25 12:00 Discharge Medications: New acetaminophen 500 mg Tablet 1,000 mg PO Q6H PRNQty: 0 0RF ibuprofen 600 mg Tablet 600 mg PO Q6H PRNQty: 0 0RF docusate sodium 100 mg Capsule 100 mg PO DAILY Qty: 0 0RF Continued PNV [id number] 30 mg iron-10 mg iron-1 mg capsule 1 cap PO DAILY omega 3-ujo-cei-fish oil [Fish Oil] 300-1,000 mg capsule 1 cap PO QDAY Discharge Orders: Discharge Order (Routine); Ordered 03/24/25 Ordered By: Nichole Hung Patient Education: OB Over the Counter Medication Information, OB Vaginal/Breast Feeding Additional Instructions: Discharge instructions were reviewed with the patient including signs and symptoms of infection and home going medications Nothing vaginally for 6 weeks: no tampons or intercourse Do not drive while taking narcotic pain medication(s) Off Work or School for 8 weeks Chronic Hypertension, without exacerbation * Call with BP greater than or equal to 160/110 * Severe headache that doesn't improve after taking medications * Changes in vision, including temporary loss of vision, blurred vision, and/or light sensitivity * Upper abdominal pain (usually under ribs on the right side) 2-week visit: discuss feeding concerns, review control options and screen for anxiety/depression. 6-week visit for an annual exam. consultation services are available to all mothers and babies for the first year after delivery.? To make an appointment, please call [phone]. Activity Level: Activity as Tolerated Discharge Diet: Regular Follow Up Appointments: [facility] [Provider Group] Forms: [employer]th Info Instructions
--- NOTE | 2025-03-24 08:00 | AC.NBSDAD ---
NB H&P: HPI Date Time Seen by Provider: 08:00 Date Seen: 03/24/25 H&P Date: 03/24/25 Subjective Subjective: Mom and infant both doing well. Breast feeding/bottling well. History of Weeks Gestation At Delivery (32.0 - 42.0): 39.3 Delivery method: Vaginal presentation: vertex Amniotic Membrane Rupture Date: 03/23/25 Amniotic Membrane Rupture Time: 10:05 Amniotic Membrane Fluid Description: Clear Delivery Date: 03/23/25 Delivery Time: 10:16 [place] Growth Rating: AGA weight: 3.58 kg Medications Medications Medications: Active Medications Generic Name Dose Route Start Last Admin Trade Name Freq PRN Reason Stop Dose Admin Acetaminophen 1,000 mg 03/23/25 11:48 03/24/25 04:45 Acetaminophen 500 Mg Tablet PO 1,000 mg Q6H PRN Administration Benzocaine/Menthol 1 applic 03/23/25 11:48 Benzocaine/Menthol [place] 85 Gm Aerosol TOPICAL QID PRN Calcium Carbonate 1,000 - 2,000 mg 03/23/25 11:48 Calcium Carbonate 500 Mg Chew PO Q2H PRN Docusate Sodium 100 mg 03/24/25 09:00 Docusate Sodium 100 Mg Capsule PO DAILY IVANA Ibuprofen 600 mg 03/23/25 11:48 03/23/25 11:00 Ibuprofen 600 Mg Tablet PO 600 mg Q6H PRN Administration Lanolin 1 applic 03/23/25 11:48 Lanolin Cream TOPICAL Q1H PRN Lidocaine HCl 30 ml 03/23/25 09:47 Lidocaine 1 % Pf 30 Ml INJECTION ONCE PRN Lidocaine/Aluminum/Magnesium/Simeth 30 ml 03/23/25 11:48 Mag Hydrox/Aluminum Hyd/Simeth 30 Ml Oral.Susp PO Q2H PRN Heartburn/Gastric distress Magnesium Hydroxide 30 ml 03/23/25 11:48 Magnesium Hydroxide 30 Ml Oral.Susp PO Q6H PRN Simethicone 80 - 160 mg 03/23/25 11:48 Simethicone 80 Mg Tab.Chew PO Q4H PRN gas Sodium Chloride 10 ml 03/23/25 09:47 Sodium Chloride 0.9 % (Flush) 10 Ml Syringe IVF .FLUSH PRN Discontinued Medications Generic Name Dose Route Start Last Admin Trade Name Freq PRN Reason Stop Dose Admin Carboprost Tromethamine Confirm 03/23/25 10:38 Carboprost Tromethamine 250 Mcg/Ml Inj Administered 03/23/25 10:39 Dose 250 mcg IM .STK-MED ONE Carboprost Tromethamine 250 mcg 03/23/25 10:44 03/23/25 10:41 Carboprost Tromethamine 250 Mcg/Ml Inj IM 250 mcg Q15M PRN Administration Control Bleeding Oxytocin 30 unit in 500 mls @ 300 mls/hr 03/23/25 10:00 03/23/25 13:00 Oxytocin 30 Unit/500 Ml In Ns IVPB Infused CONT IVANA Infusion Magnesium Sulfate Confirm 03/23/25 11:08 Magnesium Iv Administered 03/23/25 11:09 Dose 4 gm in 100 mls @ as directed IVPB .STK-MED ONE Magnesium Sulfate Confirm 03/23/25 11:08 Magnesium Infusion Administered 03/23/25 11:09 Dose 40 gm in 1,000 mls @ as directed IVPB .STK-MED ONE Ibuprofen Confirm 03/23/25 10:55 Ibuprofen 600 Mg Tablet Administered 03/23/25 10:56 Dose 600 mg .ROUTE .STK-MED ONE Ketorolac Tromethamine 30 mg 03/23/25 13:40 03/23/25 13:47 Ketorolac 30 Mg/Ml Inj IVP 03/23/25 13:41 30 mg ONCE ONE Administration Ketorolac Tromethamine Confirm 03/23/25 13:41 Ketorolac 30 Mg/Ml Inj Administered 03/23/25 13:42 Dose 30 mg .ROUTE .STK-MED ONE Loperamide HCl Confirm 03/23/25 10:38 Loperamide Hcl 2 Mg Capsule Administered 03/23/25 10:39 Dose 2 mg .ROUTE .STK-MED ONE Loperamide HCl 4 mg 03/23/25 10:44 03/23/25 10:45 Loperamide Hcl 2 Mg Capsule PO 03/23/25 10:45 4 mg ONCE ONE Administration Ondansetron HCl 4 mg 03/23/25 09:47 03/23/25 11:16 Ondansetron 2 Mg/Ml Inj IV 4 mg Q4H PRN Administration Nausea And Vomiting Oxytocin 10 unit 03/23/25 09:47 03/23/25 10:36 Oxytocin 10 Unit/Ml Inj IM 10 unit ONCE PRN Administration Maternal Health Data Maternal Health : 3 Para: 3 Labs Maternal HIV Status: Negative Maternal Blood Type: O Rubella Immune Status: Immune Maternal Syphilis (RPR) Status: Negative 1 Minute Interval Heart rate: 100 bpm or Greater Respiratory effort: Spontaneous/Strong Cry Muscle tone: Active Movement Reflex response: Prompt Response Color: Bluish Hands or Feet total score: 9 5 Minute Interval Heart rate: 100 bpm or Greater Respiratory effort: Spontaneous/Strong Cry Muscle tone: Active Movement Reflex response: Prompt Response Color: Bluish Hands or Feet total score: 9 NB Measurements Weight [place] Growth Rating: AGA Weight at discharge: 95.254 kg Discharge weight: 95.254 kg Weight difference: 91.674 Percent weight change: 2,560.72 [place] CCHD Screen ? Citation [facility]-Congenital Heart Defects Information for Healthcare Providers [email or web address], December 2024 NB Vitals Data Weight/Weight Change Weight/Weight Change Weight 3.58 kg Weight 95.254 kg Weight 101.775 kg Weight 101.877 kg Recent Vital Signs Recent Vital Signs: Last Vital Signs Temp 97.8 F 03/24/25 04:40 Pulse 56 L 03/24/25 04:40 Resp 16 03/24/25 04:40 BP 112/66 03/24/25 04:40 Pulse Ox 98 03/24/25 04:40 O2 Del Method Room Air 03/24/25 04:40 [place] A/P Assessment and plan (1) care and examination immediately after delivery: Status: Acute (2) Chronic hypertension: Problem comment: Exacerbation immediately after delivery, non sustained SRPBP. Normal labs. Status: Acute (3) Lactating mother: Status: Acute NB Discharge Medications, Vaccines, Procedures Medications/Vaccines Administered: Active Medications Acetaminophen (Acetaminophen 500 Mg Tablet) 1,000 mg PO Q6H PRN Last Admin: 03/24/25 04:45 Dose: 1,000 mg Benzocaine/Menthol (Benzocaine/Menthol [place] 85 Gm Aerosol) 1 applic TOPICAL QID PRN Calcium Carbonate (Calcium Carbonate 500 Mg Chew) 1,000 - 2,000 mg PO Q2H PRN Docusate Sodium (Docusate Sodium 100 Mg Capsule) 100 mg PO DAILY IVANA Ibuprofen (Ibuprofen 600 Mg Tablet) 600 mg PO Q6H PRN Last Admin: 03/23/25 11:00 Dose: 600 mg Lanolin (Lanolin Cream) 1 applic TOPICAL Q1H PRN Lidocaine HCl (Lidocaine 1 % Pf 30 Ml) 30 ml INJECTION ONCE PRN Lidocaine/Aluminum/Magnesium/Simeth (Mag Hydrox/Aluminum Hyd/Simeth 30 Ml Oral.Susp) 30 ml PO Q2H PRN PRN Reason: Heartburn/Gastric distress Magnesium Hydroxide (Magnesium Hydroxide 30 Ml Oral.Susp) 30 ml PO Q6H PRN Simethicone (Simethicone 80 Mg Tab.Chew) 80 - 160 mg PO Q4H PRN PRN Reason: gas Sodium Chloride (Sodium Chloride 0.9 % (Flush) 10 Ml Syringe) 10 ml IVF .FLUSH PRN Discharge Plan Discharge Date of Admission: 03/23/25 09:05 Attending Physician on Admission: Melly Combs Primary Care Provider: Arely Lundberg Discharge Medications: No Action PNV [id number] 30 mg iron-10 mg iron-1 mg capsule 1 cap PO DAILY omega 3-rdb-vlj-fish oil [Fish Oil] 300-1,000 mg capsule 1 cap PO QDAY Follow Up Appointments: Arely Lundberg MD [Primary Care Provider, Family Practice]
[2025-03-24 09:37] VITALS: BP 116/72; PULSE 92; RESP 16; TEMP 36.6; O2SAT 96
[2025-03-24 13:00] VITALS: BP 121/80; PULSE 99; RESP 16; TEMP 36.6; O2SAT 97
== END 2025-03-24 13:58 | disposition home or self-care (01) | DRG 560 ==
LOC: OB OUT 09:06 → OB 09:06
PROVIDERS: Admitting Provider Midwife; PCP Family Medicine; Visit Provider Midwife
DX: O10.92 Unspecified pre-existing hypertension complicating childbirth (principal); Z3A.39 39 weeks gestation of pregnancy; Z37.0 Single live birth
CPT/HCPCS: 36415; 82565; 84450; 84460; 84520; 85018; 85027; 86592; 86850; 86900; 86901; A9270; J1885; J2405; J2590